=== PATIENT | female | born 1980 ===

== ENCOUNTER → 2020-10-07 14:36 | Outpatient (CLI) | payer OTHER, SELFPAY ==
--- NOTE | 2020-10-07 14:38 | DI.RAD.S_ITS ---
PROCEDURE: XR FINGER RT MIN 2V INDICATIONS: smashed thumb TECHNIQUE: AP hand, 2 views of the 1st finger(s) acquired. COMPARISON: None. FINDINGS: Bones: No fractures or dislocations. No suspicious bony lesions. Soft tissues: No suspicious soft tissue calcifications. IMPRESSION: No visualized acute fracture or dislocation. However, if clinical concern and/or pain persist, short interval imaging followup in 7-10 days is recommended, as occult injury cannot be definitively excluded. Dictated by: Roseline Tyson M.D. on 10/07/2020 at 15:10 Approved by: Roseline Tyson M.D. on 10/07/2020 at 15:28
== END ==
PROVIDERS: Referring Provider Student in an Organized Health Care Education/Training Program; Visit Provider Student in an Organized Health Care Education/Training Program
DX: S67.01XA Crushing injury of right thumb, initial encounter (principal); X58.XXXA Exposure to other specified factors, initial encounter
CPT/HCPCS: 73140